=== PATIENT | male | born 1955 | race Caucasian/White ===

== ENCOUNTER → 2016-10-18 | Outpatient (CLI) | payer OTHER ==
[~2016-10-18] MED LIST: BLEPH-105 ML OP; CIPRO PO; FLOVENT DISKUS50 MCG; LEVAQUIN PO; LORCET PLUS 7.1 EACH PO; LORTAB 7.5-5001 TAB PO; LOTREL 10-20 MG1 CAP PO; LOVASTATIN20 MG PO; PERCOCET5/325 PO; PHENERGAN PO; PROMETHAZINE PO; RANITIDINE HCL300 MG PO; ZOLPIDEM TARTRAT5 M1 PO
--- NOTE | ~2016-10-18 | CT4 ---
[facility] A Service of [facility] RADIOLOGY TEXT RESULTS PATIENT: DANAY COSME LOCATION: [facility] : 51 UNIT #: [id number] AGE: [address]: Diallo Vance MD SEX: M ORDER DR: [id number] [place] [address] [id number] O MR#: [id number] Acc #: [id number] NAME: DANAY COSME : 1955 SEX: M STUDY DATE/TIME: 10/18/2016 9:13 UNIT: [facility] ROOM: STUDY DESCRIPTION: CT Abd and Pelv Wo Cont Attending Physician: Diallo Vance M.D. Referring Physician: Diallo Vance M.D. Ordering Physician: Diallo Vance M.D. Primary Care Physician: Diallo Vance M.D. MEDICAL IMAGING REPORT This report is preliminary unless electronic signature is present. EXAM CT abdomen and pelvis without contrast INDICATION Left lower quadrant abdominal pain for the past 3 weeks with difficulty urinating and hematuria at recent physician office visit. PROCEDURE Unenhanced CT of the abdomen and pelvis. This CT exam was performed with one or more of the following radiation dose reduction techniques: automatic exposure control, adjustment of mA and/or kV according to patient size, and iterative reconstruction. COMPARISON 06/28/2015 FINDINGS ABDOMEN WITHOUT CONTRAST: Included lung bases are clear. The liver enlarged measuring 21.1 cm. Stable low-attenuation lesion in segment 6 of the liver measures 1.3 cm and probably represents a benign cyst. The spleen measures 13.6 cm. A 2.2 cm lesion exophytic from the lower pole of the right kidney has high attenuation. It is not significantly changed in size from the previous study. It is favored to represent a benign proteinaceous or hemorrhagic cyst. Small nonobstructing calculus in the right kidney. Adrenal glands, pancreas unremarkable. Previous cholecystectomy. Uncomplicated diverticula scattered throughout the colon. Normal appendix. There is no radiodense ureteral calculus or hydronephrosis. [facility] A Service of [facility] RADIOLOGY TEXT RESULTS PATIENT: DANAY COSME LOCATION: [facility] : 51 UNIT #: [id number] AGE: [address]: Diallo Vance MD SEX: M ORDER DR: PELVIS WITH CONTRAST: No radiodense bladder calculus. No pelvic mass or fluid. No aggressive appearing bone lesion. IMPRESSION 1. No acute findings. 2. Hepatomegaly. 3. Probable 2.2 cm proteinaceous or hemorrhagic cyst exophytic from the lower right kidney is stable. 4. Splenomegaly. 5. Small nonobstructing calculus in the right kidney. 6. Uncomplicated colonic diverticulosis. Dictated by... Foster Adrian M.D. THIS IS AN ELECTRONICALLY VERIFIED REPORT Foster Adrian M.D. at 10/20/2016 7:09 AM Valeriano TD: 10/18/2016 16:39 JOB #: [id number] MEDICAL IMAGING REPORT Page 1 of 1
== END | disposition home or self-care (01) ==
LOC: SCT 08:56
DX: R10.32 Left lower quadrant pain (principal); K57.92 Diverticulitis of intestine, part unspecified, without perforation or abscess without bleeding; R31.9 Hematuria, unspecified; R16.2 Hepatomegaly with splenomegaly, not elsewhere classified; N20.0 Calculus of kidney; K57.30 Diverticulosis of large intestine without perforation or abscess without bleeding
CPT/HCPCS: 74176

== ENCOUNTER → 2016-11-07 | Day surgery (SDC) | payer OTHER ==
--- NOTE | ~2016-11-07 | OR ---
Unit #: [id number] #: [id number] Patient: DANAY COSME [id number] [address] [place], [place] [address] [id number] O MR#: [id number] NAME: DANAY COSME ROOM: Date of Procedure: 11/07/2016 Admission Date: 11/07/2016 Surgeon: Harjeet Mims M.D. : 1955 Attending Physician: Harjeet Mims M.D. Referring Physician: Harjeet Mims M.D. Primary Care Physician: Diallo Vance M.D. OPERATIVE REPORT PREOPERATIVE DIAGNOSIS Gastrointestinal bleeding. POSTOPERATIVE DIAGNOSIS Gastrointestinal bleeding. PROCEDURES PERFORMED 1. Esophagogastroduodenoscopy. 2. Biopsy of antrum for Helicobacter pylori testing. 3. Colonoscopy to cecum. 4. Polypectomy with electrocautery snare at 35 cm. 5. Polypectomy with electrocautery snare at 15 cm with hemoclip placement. ANESTHESIA Monitored anesthesia care. FINDINGS The patient was found to have on upper endoscopy to have mild gastritis and a lax GE junction. On colonoscopy, the patient had some scattered sigmoid diverticula as well as a small polyp excised from 35 cm as well as at 15 cm with a hemoclip placed on 15 cm polypectomy site. Mild internal hemorrhoids were also seen. SPECIMENS Sent to pathology. COMPLICATIONS None apparent. CONDITION The patient tolerated the procedure well. INDICATIONS FOR PROCEDURE The patient is a 60-year-old white male, who presents at this time with GI bleeding. He was recently found to have bright red blood per rectum. He presents at this time for evaluation by upper as well as lower endoscopy. DESCRIPTION OF PROCEDURE After obtaining informed consent, the patient was brought to the endoscopy suite and after adequate monitored anesthesia care, had the endoscope placed through the mouth into the upper esophagus under direct vision. It was advanced to the second and third portion of the duodenum without Unit #: [id number] #: [id number] Patient: DANAY COSME difficulty and with the lumen always in view. The duodenum was normal as was the duodenal bulb. The pylorus opened normally. There was some mild distal gastritis present and a biopsy was obtained for Helicobacter pylori testing. On retroflexing back to the GE junction, there was a lax GE junction, but no hiatal hernia was seen. The remaining portion of the proximal third, middle third, and incisura was all within normal limits. On pulling back above the GE junction, there was no stenosis, stricture, or neoplasm seen. There was no significant esophagitis. The remaining portion of the esophagus was within normal limits. Laryngeal structures were grossly normal as viewed from above. At this point in time, the colonoscope was placed through the anus and slowly advanced to the level of the cecum without difficulty and with the lumen always in view. The cecum was normal as was the ileocecal valve. The ascending colon was normal as was the hepatic flexure, transverse colon, splenic flexure, and descending colon. The sigmoid colon had some scattered diverticula present. There was a polyp found at 35 cm. It was excised completely with electrocautery snare, retrieved with a mucus trap, and sent to pathology. It was approximately 5 mm in size. At 15 cm, another polyp was found. It was 3 to 4 mm in size. It was excised completely with electrocautery snare with good hemostasis; however, hemoclip was placed to ensure good hemostasis. The remaining portion of the rectosigmoid and rectum was within normal limits. On retroflexing in the rectum to the anorectal junction, the patient was found to have some mild internal hemorrhoids. The scope was removed without difficulty. The patient tolerated the procedure well and went from the endoscopy suite to recovery area in stable condition. RECOMMENDATIONS Gastroesophageal reflux sheet given. Diverticular sheet given. High-fiber diet, lots of liquids, tucks or wipes p.r.n. Follow up in our office as needed. Dictated by... Ammon Demarco/kenji TD: 11/07/2016 16:16 JOB #: [id number] CC: [facility] Diallo Vance M.D. OPERATIVE REPORT Page 1 of 1 X Harjeet Mims MD PROCEDURE OPERATIVE NOTE
== END | disposition home or self-care (01) ==
LOC: COPS 11:00
DX: D12.5 Benign neoplasm of sigmoid colon (principal); D12.6 Benign neoplasm of colon, unspecified; K57.30 Diverticulosis of large intestine without perforation or abscess without bleeding; K29.70 Gastritis, unspecified, without bleeding; K64.8 Other hemorrhoids; I10 Essential (primary) hypertension; E78.00 Pure hypercholesterolemia, unspecified; E78.5 Hyperlipidemia, unspecified; G47.00 Insomnia, unspecified; G89.29 Other chronic pain; M19.90 Unspecified osteoarthritis, unspecified site; M47.816 Spondylosis without myelopathy or radiculopathy, lumbar region; M54.16 Radiculopathy, lumbar region; E11.9 Type 2 diabetes mellitus without complications; Z87.442 Personal history of urinary calculi; Z87.19 Personal history of other diseases of the digestive system; Z90.49 Acquired absence of other specified parts of digestive tract; Z85.46 Personal history of malignant neoplasm of prostate; Z79.899 Other long term (current) drug therapy; Z87.891 Personal history of nicotine dependence
CPT/HCPCS: 82947; 87077; 88305; J2250